=== PATIENT | female | born 1965 | race Caucasian/White ===

== ENCOUNTER → 2022-03-14 | Outpatient (CLI) | payer OTHER, SELFPAY ==
--- NOTE | 2022-03-14 07:56 | RAD_ITS ---
STUDY: X-RAY - LUMBAR SPINE REASON FOR EXAM: Female, 56 years old. Sciatica. TECHNIQUE: 5 view(s) of the lumbar spine were obtained. COMPARISON: None FINDINGS: Normal lumbar lordosis. Mild thoracolumbar scoliosis. There is a normal alignment of the vertebrae. Diffuse facet sclerosis. Diffuse intervertebral disc space narrowing with osteophyte formation. The soft tissue structures are unremarkable. RAD/L/S Spine Min 4 Views IMPRESSION: Mild thoracolumbar scoliosis with diffuse mild lumbosacral spondylosis. No acute abnormality, evidence of erosive changes or fusion. Electronically Signed: Ishmael Lebron, at 14:45 EDT ,
== END | disposition home or self-care (01) ==
LOC: RAD 07:54
PROVIDERS: PCP Family Medicine; Referring Provider Family Medicine; Visit Provider Family Medicine
DX: M54.31 Sciatica, right side (principal)
CPT/HCPCS: 72110